=== PATIENT | female | born 1925 | race Caucasian/White ===

== ENCOUNTER 2016-06-26 17:17 | Emergency (ER) | payer MEDICARE ==
[~2016-06-26] VITALS: Ht 157.5 cm; Wt 72.2 kg
[2016-06-26 17:20] VITALS: BP 166/70; PULSE 87; RESP 16; TEMP 98.9; O2SAT 96
[2016-06-26] MEDS ORDERED: METO25TA6 PO (18:17)
[2016-06-26] MEDS ORDERED: HYDR25TA35 PO (18:17)
[2016-06-26] MEDS ORDERED: AMLO10TA2 PO (18:17)
[2016-06-26] MEDS ORDERED: LISI40TA PO (18:17)
[2016-06-26] MEDS ORDERED: LEVO50TA4 PO (18:17)
[2016-06-26] MEDS ORDERED: PRAV40TA2 PO (18:17)
[2016-06-26] MEDS ORDERED: ASPI-110 PO (18:17)
[2016-06-26] MEDS ORDERED: HYDR50TA15 PO (18:17)
[2016-06-26] MEDS ORDERED: METF500T PO (18:17)
[2016-06-26] MEDS ORDERED: CLOP75TA PO (18:17)
[2016-06-26] MEDS ORDERED: GLIM1TAB PO (18:17)
[2016-06-26] MEDS ORDERED: CHOL1TAB35 PO (18:17)
[2016-06-26] MEDS ORDERED: FERR325T PO (18:17)
[2016-06-26] MEDS ORDERED: ALLO300T2 PO (18:17)
[2016-06-26] MEDS ORDERED: ACETAMINOPHEN/HYDROcodone 325 MG/5 MG TAB PO ONE (18:30)
--- NOTE | 2016-06-26 18:36 | PD ---
HPI Chief Complaint: Musculoskeletal Complaint Time Seen by Provider: 18:11 Travel History International Travel<30 days: No Contact w/Intl Traveler<30days: No Traveled to known affect area: No History of Present Illness HPI Patient is an 89-year-old female who presents to ER for evaluation of left sided neck pain. Patient reports that she woke up this morning and felt that her muscles in the left side her neck were very tight. Patient reports that it hurts her to turn her neck to the left and to the right. Patient denies any midline tenderness. Patient reports that she had a pain to the right side of her neck 2 weeks ago and did see her pcp. Reports that she was diagnosed with radiculopathy and was given Lortab 5/300 mg. Reports that she had relief of symptoms with this pain medication. Patient reports that she has run out of her medications and is here for a refill of her pain medications. Patient denies any recent falls or traumas. Patient denies any fevers or chills. Patient with no other complaints. PFSH Past Medical History Hx Anticoagulant Therapy: Yes (PLAVIX) Anxiety: Yes Cardiovascular Problems: Yes (CAROTID ARTERY BLOCKAGE) High Cholesterol: Yes Diabetes: Yes (TYPE 2) Patient Takes Glucophage: Yes Hypertension: Yes Seizures: Yes Thyroid Disease: Yes Influenza Vaccination: Yes ?: Not Past Surgical History Abdominal Surgery: Yes (INTESTINAL BLOCKAGE) Cholecystectomy: Yes Hysterectomy: Yes Family History Family History: Negative Social History Alcohol Use: No Tobacco Use: No Substance Use: No Allergies-Medications (Allergen,Severity, Reaction): Coded Allergies: Celebrex (Verified Allergy, Severe, "MAKES ME DRUNK", 06/26/16) Codeine (Verified Allergy, Severe, "MAKES ME DRUNK" , 06/26/16) Penicillin (Verified Allergy, Intermediate, HIVES, 06/26/16) Reported Meds & Prescriptions Reported Meds & Active Scripts Active Lortab (Hydrocodone-Acetaminophen) 5-325 Mg Tab 1 Tab PO Q6H PRN Reported Hydralazine (Hydralazine HCl) 50 Mg Tab 50 Mg PO BID Take with a meal Hydralazine (Hydralazine HCl) 25 Mg Tab 25 Mg PO DAILY Take with a meal Metoprolol Succinate ER 24 HR (Metoprolol Succinate) 25 Mg Tab 25 Mg PO DAILY Allopurinol 300 Mg Tab 600 Mg PO BID Amlodipine (Amlodipine Besylate) 10 Mg Tab 10 Mg PO DAILY D 2000 (Cholecalciferol) 2,000 Unit Tab 1 Tab PO DAILY Ferrous Sulfate 325 Mg Tab 325 Mg PO DAILY Aspirin 81 (Aspirin) 81 Mg Tabdr 81 Mg PO DAILY Lisinopril 40 Mg Tab 40 Mg PO DAILY Pravastatin 40 Mg Tab 40 Mg PO DAILY Glimepiride 1 Mg Tab 1 Mg PO DAILY Take with breakfast or first main meal Levothyroxine (Levothyroxine Sodium) 50 Mcg Tab 50 Mcg PO DAILY Metformin (Metformin HCl) 500 Mg Tab 500 Mg PO DAILY With a meal Clopidogrel (Clopidogrel Bisulfate) 75 Mg Tab 75 Mg PO DAILY Review of Systems ROS Limitations: Clinical Condition HENT: Positive: Neck Pain Physical Exam Narrative GENERAL: No acute distress, nontoxic SKIN: Warm and dry. HEAD: Atraumatic. Normocephalic. EYES: Pupils equal and round. No scleral icterus. No injection or drainage. ENT: No nasal bleeding or discharge. Mucous membranes pink and moist. NECK: Trachea midline. No JVD. Patient with left-sided paraspinal muscle tenderness, patient with no midline tenderness, pt with pain with rom of neck to the right, no obvious fx CARDIOVASCULAR: Regular rate and rhythm. No murmur appreciated. RESPIRATORY: No accessory muscle use. Clear to auscultation. Breath sounds equal bilaterally. GASTROINTESTINAL: Abdomen soft, non-tender, nondistended. Hepatic and splenic margins not palpable. MUSCULOSKELETAL: No obvious deformities. No clubbing. No cyanosis. No edema. NEUROLOGICAL: Awake and alert. No obvious cranial nerve deficits. Motor grossly within normal limits. Normal speech. PSYCHIATRIC: Appropriate mood and affect; insight and judgment normal. Data Data Last Documented VS Vital Signs Date Time Temp Pulse Resp B/P Pulse Ox O2 Delivery O2 Flow Rate FiO2 06/26/16 19:58 64 18 165/64 95 Room Air 06/26/16 17:[address] Cerv Spine W/O Contrast (06/26/16 18:20) Apply Cervical Collar (06/26/16 18:20) Acetamin-Hydrocod 325-5 Mg ([place] 5-325 (06/26/16 18:30) MDM Medical Decision Making Medical Screen Exam Complete: Yes Emergency Medical Condition: Yes Interpretation(s) Vital Signs Date Time Temp Pulse Resp B/P Pulse Ox O2 Delivery O2 Flow Rate FiO2 06/26/16 17:20 98.9 87 16 166/70 96 Differential Diagnosis Cervical radiculopathy, torticollis, cervical spine fracture, muscle strain Narrative Course Patient is an 89-year-old female who presents to emergency room with complaints of left-sided neck pain. Reports that she woke up this morning with pain to her left neck, reports pain with range of motion neck. Patient denies any trauma or any recent falls. Patient was at the same thing happen to the right side her neck 2 weeks ago, did see her PCP and was prescribed Lortab which helped with her symptoms. Patient reports that she has run out of her Lortab and needs a refill her medications. Patient with no other complaints at this time. Plan to obtain CT of the neck to evaluate for pathology of pain Will give patient a dose of Lortab in the emergency room. Reviewed CT of the neck with patient in detail. Patient given a copy for CAT scan report or discharge. Patient instructed to follow up with primary care doctor return to ER as needed. Diagnosis Primary Impression: Neck muscle spasm Additional Impression: Radiculitis, cervical Patient Instructions: General Instructions, Narcotic given in the ED Additional Instructions: Please follow up with your primary care doctor as soon as possible Please return to ER as needed Please bring your CT study to your doctor's office for follow up on all findings from today Please do not drive or operate heavy machinery while taking narcotic pain medications Med/Other Pt SpecificInfo: Prescription(s) given Scripts Hydrocodone-Acetaminophen (Lortab)5-325 Mg Tab1 Tab PO Q6H PRN (PAIN) #10 TAB Ref 0 Prov:Eleonora Armstrong DO 06/26/16 Disposition: 01 DISCHARGE HOME Condition: Stable Eleonora Armstrong DO Jun 26, 2016 18:36
[2016-06-26] MEDS ORDERED: HYDR-3533 PO (19:33)
[2016-06-26 19:58] VITALS: BP 165/64; PULSE 64; RESP 18; O2SAT 95
--- NOTE | 2016-06-26 20:30 | RADHPO ---
EXAM DATE/TIME: 06/26/2016 19:31 [facility] COMPARISON: None. INDICATIONS : Neck pain, no known trauma. RADIATION DOSE: 26.86 CTDIvol (mGy) MEDICAL HISTORY : Seizures. Hypertension. SURGICAL HISTORY : Cholecystectomy. Hysterectomy. ENCOUNTER: Initial ACUITY: 2 weeks PAIN SCALE: 9/10 LOCATION: neck TECHNIQUE: Volumetric scanning of the cervical spine was performed. Multiplanar reconstructions in the sagittal, coronal and oblique axial planes were performed. Using automated exposure control and adjustment o f the mA and/or kV according to patient size, radiation dose was kept as low as reasonably achievable to obtain optimal diagnostic quality images. FINDINGS: Cervical spine alignment is satisfactory. There is no evidence of fracture or destructive change. The re degenerative changes throughout with disc space narrowing and endplate osteophytes most conspicuou sly at C5-6 and C6-7 levels with less severe changes at the adjacent levels. Multilevel mild posterio r facet arthropathy is also present. There is no evidence of paraspinal mass or hematoma. Disc protru sions of varying severity as are present at multiple levels accompanied by endplate osteophytic spurr ing. CONCLUSION: No evidence of acute bony process in the cervical spine. Prosper Gray MD Board Certified Radiologist. This report was verified electronically.
== END 2016-06-26 20:45 | disposition home or self-care (01) ==
LOC: PHED 17:17 → PHEFT 20:45
DX: M62.838 Other muscle spasm (principal); M54.10 Radiculopathy, site unspecified; Z79.01 Long term (current) use of anticoagulants; F41.9 Anxiety disorder, unspecified; E11.9 Type 2 diabetes mellitus without complications; I10 Essential (primary) hypertension; Z79.4 Long term (current) use of insulin
CPT/HCPCS: 72125